=== PATIENT | male | born 1980 | race Caucasian/White ===

== ENCOUNTER 2023-05-02 11:55 | Outpatient (CLI) | payer OTHER ==
--- NOTE | 2023-05-02 13:31 | Sleep Patient Instructions ---
Sleep Center Visit Summary - Patient Visit Information Reason for Visit: Initial consult for evaluation of sleep disordered breathing and other sleep issues. - Patient Instructions Instructions Attached: Sleep Study Additional Instructions: You will be completing a sleep study, either an in-lab polysomnography (PSG) or home sleep study (HST). You will follow-up in the sleep care office after the sleep study is completed to hear the results and talk about therapy, if needed. You will be called by our office staff to schedule this appointment, but you may contact us with any questions. - Clinic Information Contact: [facility] [address] [place] [address] [email or web address] T: [phone]
--- NOTE | 2023-05-02 13:36 | SLEEP CARE CONSULTATION ---
Information from patient questionnaire entered by Bari Gagnon. I have reviewed and concur with the information entered by Bari Gagnon. This document represents the service I personally performed and the decisions made by me, Melissa Garcia ARNP. History of Present Illness Service Date and Time: 05/02/2023 1155 Reason for Visit: New patient Chief Complaint: reports: Unrefreshed sleep, Snoring, Excessive daytime sleepiness, Frequent awakenings at night, Other (HYPERTENSION ) Date of Onset: 20 YRS Usual bedtime: 2129 Time it takes to fall asleep: 1-2 Snores at night: Yes Observed to quit breathing while asleep: No Sleeps alone due to snoring: Yes Number of times waking at night: 2-3 Reasons for waking at night: reports: Snoring, Pain, Bathroom, Other (NOISE; woke up with real dry throat). denies: Choking, Gasping for air Toss, Turn, or Twitch while sleeping: Yes Recalls having dreams: Yes Usually gets out of bed at: 0600 Feels refreshed in the morning: No Morning headache: Yes (2-3 times a week; resolve after coffee (not drinking it lately)) Sleepy or fatigued during the day: Yes Ever fallen asleep while driving: No Takes day naps: No Dreams during day naps: Yes Prior sleep studies: No Additional HPI information: I had the pleasure of seeing PARVIN TYSON today regarding the possibility of him having a sleep disorder. His current complaints are excessive daytime sleepiness, frequent night awakenings, snoring and unrefreshed sleep. He has been having some high blood pressure. He was monitoring for his PCP. He says he will fall asleep quickly and goes into a dream, then he will wake up and not be able to sleep for almost 2 hours. If he is able to go back to sleep, he will usually wake up at 3 AM and not be able to return to sleep. He does not wake up feeling refreshed and sometimes will wake up with a headache. The headaches will usually resolve with coffee but he has cut out coffee since March in an attempt to reduce blood pressure. His had told him that he snores but has not seen him stop breathing. - Parasomnia Symptoms Ever been unable to move upon waking from sleep: No Walks in sleep: No Talks in sleep: No Ever acted out dreams in sleep: No Ever felt weak in the knees when startled or emotional: Yes Bothered by creepy, crawly, restless sensations in legs: Yes (evening or when drowsy; tingly, twitch) Problems with memory or concentration: Yes (memory, forget small stuff; repeating himself) Subjective Initial Mayo Sleepiness Scale score: 7 (05/02/23) Past Medical History Past Medical History: reports: Other (stomach ulcer) Social History The patient's occupation is a AM. Patient is and lives in . Have you smoked in the past 12 months: No Alcohol use: Yes Alcohol amount and frequency: 1-2 GLASSES SOCIALLY ON WEEKENDS Caffeine use: Yes Caffeine amount and frequency: 1-2 CUPS EVERYDAY Family History Family history of sleep disordered breathing: Yes Family Hx Sleep Apnea: Mother: Snoring, Father: Snoring Allergies and Home Medications Known drug allergies: No Drug allergies reviewed: Yes Home medication list reviewed: Yes (as listed) Allergy and home medication list: Allergies No Known Drug Allergies Allergy (Verified 05/02/23 13:07) Home Medications Multivit,Calc,Min/FA/K1/Lycop [One Daily Men's Multivitamin] See Rx Instructions .ROUTE .COMPLEX 05/02/23 [History] Omeprazole Magnesium [Prilosec] See Rx Instructions .ROUTE .COMPLEX 05/02/23 [History] Review of Systems Weight gain over past 5 years: 20-25 Cardiovascular: reports: high blood pressure Gastrointestinal: reports: heartburn Neurological: reports: headaches, disorientation. denies: head trauma Psychiatric: reports: anxiety Ear/Nose/Throat: reports: nasal congestion, sinus problems, nose bleeds, hoarseness. denies: injury to nose, tonsillectomy Endocrine: reports: excessive thirst Musculoskeletal: reports: joint pain, neck pain, back pain, mobility problems Physical Exam Vital signs obtained and entered by: BARI Plasencia MA Blood Pressure: 142/89 (RIGHT ARM) Cuff size: regular Heart Rate: 74 O2 Saturation: 97 Height: 5 ft 10 in (PER PT) Weight: 201 lb 6.4 oz Body Mass Index: 28.9 BMI Classification: Overweight Neck circumference: 15.5 Mouth and throat: normal Soft palate: normal Hard palate: normal Uvula: normal Uvula visualization: 50% Mallampati Class II Tongue: enlarged in size with teeth phillips on lateral edges Tonsils: small Neck: normal w/o lymphadenopathy or thyromegaly Heart: regular rate and rhythm Lungs: clear bilaterally Impression and Plan 1. Suspected Obstructive Sleep Apnea-Hypopnea Syndrome, as suggested by a history of loud and irregular snoring, morning headache, frequent awakening during the night, unrefreshed sleep, cognitive impairment, and excessive daytime sleepiness. Narrow oropharynx and obesity are common predisposing factors for obstructive sleep apnea-hypopnea syndrome. I recommend proceeding to polysomnography to confirm the diagnosis and to assess severity. If the patient has significant sleep disordered breathing, a manual CPAP titration study will also be performed to find the optimal treatment pressure. I informed the patient of what the sleep studies involve and after some discussion, obtained agreement to proceed. The pathophysiology of obstructive sleep apnea-hypopnea syndrome was discussed with the patient and health risks of cardiovascular and cerebrovascular disease if not treated. Risks of drowsy driving discussed in detail and patient advised to avoid long distance driving and to dross puller at the first sign of drowsiness. Patient agreed to plan. * Schedule polysomnography * Avoid long distance driving or driving when feeling sleepy. * Avoid alcohol, sedative and muscle relaxant around bedtime. * Attempt to lose weight. * Review instructions provided by trained office staff on how to prepare for the sleep study. * Return for follow-up after sleep study completed. Counseling Topics: Weight loss health impact Plan: PSG Visit Type: In Office Time Spent with Patient (minutes): 32 Provider Statement: I spent 100% of the Face to Face Visit with the patient with greater than 50% spent counseling the patient and coordination of care.
[2023-05-02 13:46] VITALS: BP 142/89; O2SAT 97
== END 2023-05-02 11:56 | disposition home or self-care (01) ==
LOC: SC 11:55
PROVIDERS: ATTEND Nurse Practitioner Family
DX: R06.83 Snoring (principal); R51.9 Headache, unspecified; G47.8 Other sleep disorders; G47.10 Hypersomnia, unspecified
CPT/HCPCS: 99203; 99212

== ENCOUNTER 2023-05-19 20:38 | Outpatient (CLI) | payer OTHER | END 2023-05-19 20:39 | disposition home or self-care (01) | LOC: SC 20:38 | PROVIDERS: ATTEND Nurse Practitioner Family | DX: R06.83 Snoring (principal); G47.8 Other sleep disorders; R51.9 Headache, unspecified; G47.10 Hypersomnia, unspecified; E66.3 Overweight; Z68.28 Body mass index [BMI] 28.0-28.9, adult | CPT/HCPCS: 95810 ==

== ENCOUNTER 2023-06-05 08:56 | Outpatient (CLI) | payer OTHER ==
--- NOTE | 2023-06-05 09:53 | Sleep Patient Instructions ---
Sleep Center Visit Summary - Patient Visit Information Reason for Visit: Sleep study follow-up - Patient Instructions Instructions Attached: Snoring Tips Prevent Additional Instructions: Your sleep study today was negative for significant sleep disordered breathing. You were found to have episodes of snoring. There are different ways to control snoring including weight loss, oral devices made by a dentist or surgical options through ENT specialist. You should not use oral devices that do not fit properly because they can affect your bite. You should also check insurance coverage of oral devices for snoring because they may not be cover well. You may obtain a referral to an ENT specialist through your primary provider. Follow-up as needed. - Clinic Information Contact: [facility] [address] [place] [address] [email or web address] T: [phone]
--- NOTE | 2023-06-05 09:54 | SLEEP CARE CONSULTATION ---
Information from patient questionnaire entered by Emmie Gagnon. I have reviewed and concur with the information entered by Emmie Gagnon. This document represents the service I personally performed and the decisions made by , Melissa Garcia ARNP. History of Present Illness Service Date and Time: 06/05/2023 0856 Initial Holmes Sleepiness Scale score: 7 (05/02/23) Current Holmes Sleepiness Scale score: 8 (06/05/23) Additional HPI information: PARVIN TYSON returns for follow up and results of the recently performed polysomnography. The patient was informed of the following findings: No significant sleep disordered breathing with an average AHI of 1.6 and lisa oxygen saturation of 88%. I explained the pathophysiology behind obstructive sleep apnea. Patient does not have sleep apnea and was advised how weight gain could increase the risk of developing sleep apnea in the future. I strongly encouraged the patient to lose weight. Patient has light to moderate snoring. Snoring can be reduced by weight loss. Weight loss is best achieved with diet consult. Patient instructed to contact PCP for referral. Snoring can also be treated with an oral appliance from a dentist. Advised to check insurance coverage. In addition, an ENT evaluation can be do to see if other treatment is indicated. Patient counseled not drink alcohol less than 4 hours before bedtime as it can increase snoring and apnea. Patient was cautioned about risks of drowsy driving until sleepiness symptoms resolve. Patient denies drowsy driving. Sleep Study - Results Type of Sleep Study: Polysomnography (COMPLETED 05/19/23) Prior sleep studies: No Polysomnography/Home Sleep Study results: IMPRESSION: The quality of the study is good. The patient had slightly reduced sleep efficiency due to sleep onset insomnia. The sleep architecture was otherwise normal. Respiratory monitoring showed no significant sleep disordered breathing (AHI = 1.6) or hypoxia (lisa oxygen saturation of 88%). The few respiratory events occurred mainly during supine sleep (supine AHI = 3.3; non-supine = 0.75). Snore was light to moderate in intensity. There was no significant periodic leg movement of sleep. Cardiac rhythm was normal sinus rhythm without significant arrhythmia. No abnormal behavior (parasomnia) observed during the night. Allergies and Home Medications Known drug allergies: No Drug allergies reviewed: Yes Home medication list reviewed: Yes (no changes) Allergy and home medication list: Allergies No Known Drug Allergies Allergy (Verified 06/03/23 08:52) Review of Systems Review of systems same as previous: Yes (NO CHANGE) Physical Exam Vital signs obtained and entered by: EMMIE Plasencia MA Blood Pressure: 130/94 (RIGHT ARM) Cuff size: regular Heart Rate: 78 O2 Saturation: 97 Height: 5 ft 10 in (PER PT) Weight: 206 lb Body Mass Index: 29.5 BMI Classification: Overweight Impression and Plan 1. Snoring but no significant sleep disordered breathing. Patient advised that often weight loss will reduce snoring as well as apnea risk. An oral appliance can also be used for snoring. This would require a dental consultation. Patient cautioned not to use other online appliances as can cause bite issues. Patient is advised to check if insurance will cover. An ENT consult can also be helpful to determine if any other treatment is an option. 2. Overweight, unspecified. Currently patients BMI is 29.5. Obesity increases the risk of apnea, CPAP pressure requirements and overall health risks especially cardiovascular and diabetes. Thus patient is advised to lose weight. * Attempt to lose weight * Avoid alcohol consumption near bedtime * Return as needed for follow up. Counseling Topics: Weight loss health impact Follow up with Sleep Care in: as needed Visit Type: In Office Time Spent with Patient (minutes): 11 Provider Statement: I spent 100% of the Face to Face Visit with the patient with greater than 50% spent counseling the patient and coordination of care.
[2023-06-05 10:02] VITALS: BP 130/94; O2SAT 97
== END 2023-06-05 08:57 | disposition home or self-care (01) ==
LOC: SC 08:56
PROVIDERS: ATTEND Nurse Practitioner Family
DX: R06.83 Snoring (principal)
CPT/HCPCS: 99212